=== PATIENT | female | born 1990 | race Two or more races ===

== ENCOUNTER 2021-09-07 13:38 | Outpatient (REF) | payer OTHER, SELFPAY | END 2021-09-07 13:39 | disposition home or self-care (01) | LOC: HO.LAB 13:38 | PROVIDERS: Visit Provider Hospitalist | DX: Z20.822 Contact with and (suspected) exposure to COVID-19 (principal); J98.8 Other specified respiratory disorders | CPT/HCPCS: U0003; U0005 ==